=== PATIENT | female | born 1995 | race American Indian/Alaskan Native ===

== ENCOUNTER 2021-04-04 10:37 | Inpatient (IN) | payer MEDICAID ==
[2021-04-04] MEDS ORDERED: LACTATED RINGERS 1,000 ML ONE (11:29)
--- NOTE | 2021-04-04 11:31 | History and Physical Report ---
History of Present Illness Date of examination: 04/04/21 Date of admission: 04/04/2021 Chief complaint: "contractions" History of present illness: EDC Confirmation: 04/11/2021 Past History : 3 Term Births: 2 Premature Births: 0 Living Children: 2 Para: 2 Mult. Births: 0 Prev : 0 Prev. attempt? 0 Aborta: 0 Elect. Ab: 0 Spont. Ab: 0 Ectopics: 0 # 1 Delivery date: 2014 Weeks Gestation: term labor: no Delivery type: Hours of labor: 9 Anesthesia type: epidural [place] [facility] [place] Sex: Female weight: 7-4 Name: duke Comments: denies complications # 2 Delivery date: 2015 Weeks Gestation: term Delivery type: Hours of labor: 7 Anesthesia type: ? Delivery location: [facility] [place] Sex: Female weight: 7-6 Name: maxime Comments: Pt was very vague with details with this delivery Past Medical History: Negative Past Medical History Past Surgical History: Negative Past Surgical History Past Medical History Surgery (Non-recreation aide): Negative Past Surgical History Abnormal PAP: negative MURRAY Exposure: negative Infertility: negative Uterine Anomaly: negative Uterine Surgery (not C/S): negative Other Gynecologic Problems: negative Social Hx: Patient is single Smoking History: Patient is a former smoker. Infection History Hx of STD: chlamydia & GC HIV Risk Eval: no Hepatitis B Risk Eval: low risk Personal hx. of genital herpes: yes Partner hx. of genital herpes: no Rash, Viral, or Febrile illness since last LMP? no Varicella/Chicken Pox Status: Unknown TB Risk: no Genetic History Congenital Heart Defect: Mom: no Dad: no Livier Disease: Mom: no Dad: no Thalassemia Mom: no Dad: no Neural Tube Defect Mom: no Dad: no Down's Syndrome Mom: no Dad: no Clark-Sachs Mom: no Dad: no Sickle Cell Disease/Trait Mom: no Dad: yes Comments: his dad is SCT+; & a niece Hemophilia Mom: no Dad: no Muscular Dystrophy Mom: no Dad: no Cystic Fibrosis Mom: no Dad: no [place] Chorea Mom: no Dad: no Mental Retardation Mom: no Dad: no Fragile X Mom: no Dad: no Other Genetic/Chromosomal Disorder Mom: no Dad: no Child w/other defect Mom: yes Dad: no Comments: 1st daughter is SCT+ Other: FOB has a son but is unaware of his history Enviromental Exposures Xray Exposure: no Medication, drug, or alcohol use since LMP: no Chemical/Other Exposure: no Exposure to Cat Liter: no Hx of Parvovirus (Fifth Disease): no Occupational Exposure to Children: none Active Medications: None Current Allergies: No known allergies Past History Past Medical History: other (see HPI) Past Surgical History: other (see HPI) 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: other (see HPI) Family/Genetic History: other (see HPI) Social history: other (see HPI) - Obstetrical History Expected Date of Delivery: 04/11/21 Actual Gestation: 39 Week(s) 0 Day(s) : 3 Para: 2 Hx # Term Pregnancies: 2 Number of Pregnancies: 0 Spontaneous Abortions: 0 Induced : 0 Number of Living Children: 2 Medications and Allergies Allergies Allergy/AdvReac Type Severity Reaction Status Date / Time No Known Allergies Allergy Unverified 12/18/13 16:19 Home Medications Medication Instructions Recorded Confirmed Last Taken Type Nitrofurantoin [place]/M-Cryst 100 mg PO Q12HR #14 capsule 12/18/13 Unknown Rx [Macrobid] Acetaminophen/Codeine [Tylenol #3] 1 tab PO Q6H PRN #16 tab 04/10/15 Unknown Rx Nitrofurantoin [place]/M-Cryst 100 mg PO Q12HR #14 capsule 03/22/16 Unknown Rx [Macrobid CAP] Vit No.130/Iron/Folic 1 each PO QDAY #30 tablet 03/22/16 Unknown Rx [ Tablet] Review of Systems All systems: negative Genitourinary: contractions, no vaginal bleeding, no leakage of fluid - Vital Signs Vital signs: Vital Signs Pulse Ox 95 04/04/21 11:03 Temp Pulse Resp BP Pulse Ox 72 134/89 99 04/04/21 11:23 04/04/21 11:06 04/04/21 11:23 - Physical Exam Breasts: Positive: deferred Cardiovascular: Regular rate Lungs: Positive: Normal air movement Abdomen: Positive: normal appearance, soft, other (gravid) Uterus: Positive: normal size, normal contour, other (gravid) Extremities: Positive: normal - Obstetrical FHR: auscultation normal, category 1 Uterine Contraction Monitor Mode: External Cervical Dilatation: 5 (per Felicitas classroom technology coach) Uterine Contraction Pattern: Regular Uterine Tone Measurement Phase: Contraction Uterine Contraction Intensity: Moderate Results Result Diagrams: 04/04/21 12:00 All other labs normal. GBS UNKNOWN Tests: (1) Profile I ([id number]) Order Note: Clinical Information: SRC:UR HBsAg Screen Negative Negative *1 RPR Non Reactive Non Reactive *2 Rubella Antibodies, IgG 4.62 index Immune >0.99 *3 Non-immune <0.90 Equivocal 0.90 - 0.99 Immune >0.99 ABO Grouping B *4 Rh Factor Positive *5 Please note: Prior records for this patient's ABO / Rh type are not available for additional verification. Antibody Screen Negative Negative *6 WBC [H] 11.1 x10E3/uL 3.4-10.8 *7 RBC 3.92 x10E6/uL 3.77-5.28 *8 Hemoglobin 12.7 g/dL 11.1-15.9 *9 Hematocrit 36.5 % 34.0-46.6 *10 MCV 93 fL 79-97 *11 MCH 32.4 pg 26.6-33.0 *12 MCHC 34.8 g/dL 31.5-35.7 *13 RDW 12.5 % 11.7-15.4 *14 Platelets 262 x10E3/uL 150-450 *15 Neutrophils 73 % Not Estab. *16 Lymphs 20 % Not Estab. *17 Monocytes 5 % Not Estab. *18 Eos 1 % Not Estab. *19 Basos 0 % Not Estab. *20 ! Immature Cells <No Reported Value> *21 Neutrophils (Absolute) [H] 8.1 x10E3/uL 1.4-7.0 *22 Lymphs (Absolute) 2.2 x10E3/uL 0.7-3.1 *23 Monocytes(Absolute) 0.6 x10E3/uL 0.1-0.9 *24 Eos (Absolute) 0.1 x10E3/uL 0.0-0.4 *25 Baso (Absolute) 0.0 x10E3/uL 0.0-0.2 *26 ! Immature Granulocytes 1 % Not Estab. *27 ! Immature Grans (Abs) 0.1 x10E3/uL 0.0-0.1 *28 ! NRBC <No Reported Value> *29 Hematology Comments: <No Reported Value> *30 Tests: (2) HB Solu + Rflx [facility] ([id number]) Hemoglobin (Hgb) Solubility N Negative *31 Tests: (3) HIV Ag/Ab with Reflex ([id number]) HIV Screen 4th Generation wRfx Non Reactive Non Reactive *32 Tests: (4) HCV Ab w/Rflx to Verification ([id number]) ! HCV Ab 0.1 s/co ratio 0.0-0.9 *33 Tests: (5) Comment: ([id number]) ! Comment: SPRCS *34 Non reactive HCV antibody screen is consistent with no HCV infection, unless recent infection is suspected or other evidence exists to indicate HCV infection. Effective December 31, 2020, this panel will be made non-orderable as it no longer meets clinical guidelines for the detection of HCV infection. [facility] offers HCV Antibody with reflex to Quantitative real-time PCR ([id number]) and HCV Antibody with reflex to Qualitative JUDITH ([id number]) which align with current guidelines. Tests: (6) Urine Culture, Routine ([id number]) Urine Culture, Routine Final report *35 Tests: (7) Result ([id number]) ! Result 1 MUG *36 Mixed urogenital jordi 10,000-25,000 colony forming units per mL Assessment and Plan 26y.o. @ 39wks EGEric presents to triage with c/o painful contractions and desires for epidural. SVE performed per cooker mechanic 5cm, before CNM arrival to bedside. Pt denies LOF and VB; reports +FM. POC d/w pt and FOB. Questions encouraged. No questions verbalized at this time. Pt verbalizes understanding and agrees to POC. Admission orders placed in EMR. RN and Dr. Tineo made aware. Anticipate - Patient Problems (1) Insufficient care Current Visit: Yes Status: Acute Plan to address problem: continuous efm and toco notify provider with changes in status (2) 39 weeks gestation of Current Visit: Yes Status: Acute (3) GBS screening not performed Current Visit: Yes Status: Acute Plan to address problem: prophylaxis tx per protocol (4) Active labor at term Current Visit: Yes Status: Acute
[2021-04-04] MEDS ORDERED: CARBOPROST TROMETHAMINE 250 MCG/1 ML INJ IM PRN (11:34)
[2021-04-04] MEDS ORDERED: BUTORPHANOL 2 MG/1 ML INJ IV PRN (11:34)
[2021-04-04] MEDS ORDERED: miSOPROStol 200 MCG TAB PR PRN (11:34)
[2021-04-04] MEDS ORDERED: LIDOCAINE (2%) 20 MG/1 ML VIAL 20 ML MDV INFILTRATI ONE (11:34)
[2021-04-04] MEDS ORDERED: PROMETHAZINE 25 MG TAB PO PRN ×2 (11:34→17:06)
[2021-04-04] MEDS ORDERED: ePHEDrine SULFATE 50 MG/1 ML INJ IV PRN ×2 (11:34→13:00)
[2021-04-04] MEDS ORDERED: NALOXONE 0.4 MG/1 ML INJ IV PRN (11:34)
[2021-04-04] MEDS ORDERED: TERBUTALINE 1 MG/1 ML INJ SUB-Q PRN (11:34)
[2021-04-04] MEDS ORDERED: ONDANSETRON 4 MG/2 ML INJ IV PRN ×2 (11:34→17:06)
[2021-04-04] MEDS ORDERED: MINERAL OIL 30 ML ORAL LIQD PO PRN (11:34)
[2021-04-04] MEDS ORDERED: LOPERAMIDE 2 MG CAP PO PRN (11:34)
[2021-04-04] MEDS ORDERED: OXYTOCIN 10 UNIT/1 ML INJ IM PRN (11:34)
[2021-04-04] MEDS ORDERED: ACETAMINOPHEN 325 MG TAB PO PRN ×2 (11:34→17:06)
[2021-04-04] MEDS ORDERED: METHYLERGONOVINE MALEATE 0.2 MG/ML VIAL IM PRN (11:34)
[2021-04-04] MEDS ORDERED: LACTATED RINGERS 1,000 ML IV SCH (11:45)
[2021-04-04] MEDS ORDERED: OXYTOCIN DRIP 30 UNITS/500 ML BAG IV SCH ×2 (12:00)
[2021-04-04] MEDS ORDERED: AMPICILLIN/NS 2 GM/100 ML 2 GM/100 ML BAG IV ONE (12:00)
[2021-04-04 12:32] LABS: Hematocrit 35.7 % (30.3-42.9); Hemoglobin 12.8 gm/dl (10.1-14.3); Mean Corpuscular HGB Conc 36 % (30-34); Mean Corpuscular Volume 91 fl (79-97); Platelet Count 192 K/mm3 (140-440); Red Blood Count 3.91 M/mm3 (3.65-5.03); Red Cell Distribution Width 13.5 % (13.2-15.2)
[2021-04-04] MEDS ORDERED: NALOXONE 2 MG/2 ML INJ IV PRN (13:00)
--- NOTE | 2021-04-04 13:00 | Anesthesia Consultation ---
Anesthesia Consult and Med Hx Date of service: 04/04/21 - Airway Anesthetic Teeth Evaluation: Good ROM Head & Neck: Adequate Mental/Hyoid Distance: Adequate Mallampati Class: Class II Intubation Access Assessment: Probably Good - Pulmonary Exam CTA: Yes - Cardiac Exam Cardiac Exam: RRR - Pre-Operative Health Status ASA Pre-Surgery Classification: ASA2 Proposed Anesthetic Plan: Epidural - Pulmonary Hx Asthma: No COPD: No Hx Pneumonia: No - Cardiovascular System Hx Hypertension: No - Central Nervous System Hx Seizures: No Hx Psychiatric Problems: No - Endocrine Hx Renal Disease: No Hx End Stage Renal Disease: No Hx Hypothyroidism: No Hx Hyperthyroidism: No - Hematic Hx Anemia: No Hx Sickle Cell Disease: No - Other Systems Hx Alcohol Use: No
[2021-04-04] MEDS ORDERED: fentaNYL-BUPIV 2 MCG/ML-0.125% 200 MCG/100 ML BAG EPIDURAL SCH (14:00)
--- NOTE | 2021-04-04 15:11 | Progress Note ---
Labor Epidural - Labor Epidural Start Time: 13:04 Stop Time: 13:09 Performed by:: FRANCIS DUORN Procedure: Patient is requesting epidural for labor pain. H&P, and labs reviewed. Procedure explained, questions answered, consent obtained. Patient in sitting position with blood pressure cuff and pulse ox on and working. Timeout performed immediately before start of procedure. Sterile chlorahexadine 0.5% prep/drape. 3 mL 1% lidocaine skin wheal at L[3]-L[4]. 17-gauge tuohy epidural needle advanced to [id number]-[id number] with saline at [7] cm. 25-gauge spinal needle advanced until clear, free-flowing CSF. Intrathecal dexmedetomidine [5] mcg administered and needle removed. Epidural catheter advanced to [12] cm, negative aspiration for blood and csf, negative test dose 3 ml 1.5% lidocaine with epinephrine. Sterile sponge and tegaderm applied, followed by tape reinforcement. Patient tolerated procedure well.
--- NOTE | 2021-04-04 15:45 | Event Note ---
Date: 04/04/21 Pt comfortable s/p epidural. SVE 8-9/100%/-1 BBOW. Pt tolerated well. POC reviewed with pt, FOC, and RN at bedside. Questions encouraged and addressed. Pt verbalizes understanding and agrees to POC. Anticipate . T's Cat 1. DR Tineo present on unit and aware.
[2021-04-04] MEDS ORDERED: AMPICILLIN 1 GM in SODIUM CHLORIDE 0.9% 50 ML IV SCH (16:00)
[2021-04-04] MEDS ORDERED: LANOLIN/ZINC/DIMETHICONE (LANSINOH) 7 GM TP PRN (17:06)
[2021-04-04] MEDS ORDERED: WITCH HAZEL/ GLYCERIN PAD TP PRN (17:06)
[2021-04-04] MEDS ORDERED: BENZOCAINE/MENTHOL 20/0.5% TOP SPRAY 56 GM TP PRN (17:06)
[2021-04-04] MEDS ORDERED: MAGNESIUM HYDROXIDE (MOM) ORAL LIQD UDC PO PRN (17:06)
[2021-04-04] MEDS ORDERED: diphenhydrAMINE 25 MG CAP PO PRN (17:06)
[2021-04-04] MEDS ORDERED: oxyCODONE /ACETAMINOPHEN 5-325MG TAB PO PRN (17:06)
--- NOTE | 2021-04-04 17:06 | Procedure Note ---
OB Delivery Note - Delivery Date of Delivery: 04/04/21 Flying Squad Worker: MARCELO MONDRAGON Estimated blood loss: 200cc - Vaginal Delivery presentation: vertex Delivery position: OA Intrapartum events: meconium Delivery induction: none Delivery monitor: external FHT, external uterine Route of delivery: Delivery placenta: spontaneous Delivery cord: nuchal cord (x2), 3 umbilical vessels Episiotomy: none Delivery laceration: none Anesthesia: epidural Delivery comments: counts correct x2 IGLESIA present for delivery fundus firm below U with scant lochia noted mother and baby left LDR stable - Infant A at 1 minute: 8 at 5 minutes: 9 Gender: Male ([id number])
[2021-04-04] MEDS ORDERED: IBUPROFEN 600 MG TAB PO SCH (18:00)
[2021-04-04] MEDS ORDERED: DOCUSATE SODIUM 100 MG CAP PO SCH (22:00)
[2021-04-05 05:34] LABS: Hematocrit 35.1 % (30.3-42.9); Hemoglobin 12.4 gm/dl (10.1-14.3)
[2021-04-05] MEDS ORDERED: TETANUS,DIPH,PERTUSS(ACELL) VACCINE 0.5 ML SYRINGE IM ONE (06:00)
--- NOTE | 2021-04-05 08:44 | Progress Note ---
Assessment and Plan patient resting, c/o involution pain not relieved by tylenol. b/p noted 165/103 this morning, pt denies HARTLEY, visual changes or epigastric pain. Will give dose of motrin for cramping and reevaluate b/p in 1 hour. pre-e labs ordered. H&H 12.4/35.1. - Patient Problems (1) Elevated blood pressure reading Current Visit: Yes Status: Acute Plan to address problem: pre-e labs ordered. pt asymptomatic, c/o normal involution pain. rn to recheck b/p in 1 hour and update provider. if b/p remains elevated, will transfer to L&D for magnesium sulfate infusion. (2) (normal spontaneous vaginal delivery) Current Visit: Yes Status: Acute Plan to address problem: Continue pathway Subjective - Subjective Date of service: 04/05/21 Principal diagnosis: day #1 s/p , elevated b/p Patient reports: appetite normal, voiding normally, pain poorly controlled (tylenol no relieving involution pain), ambulating normally, no dizzy ambulation [place]: doing well, nursing well Objective - Vital Signs Latest vital signs: Vital Signs Temp Pulse Resp BP Pulse Ox Pulse Ox 04/05/21 07:41 97.8 F 59 L 16 165/103 100 04/05/21 05:05 12 04/05/21 04:43 98.1 F 59 L 18 147/80 98 04/05/21 01:27 97.6 F 68 18 133/86 97 04/04/21 22:12 12 04/04/21 20:00 98.6 F 82 12 96 98 04/04/21 19:58 89 99 04/04/21 19:57 80 124/73 04/04/21 19:53 85 98 04/04/21 19:48 77 100 04/04/21 19:43 95 H 99 04/04/21 19:42 85 123/66 04/04/21 19:41 98.9 F 17 04/04/21 19:40 99 04/04/21 19:38 83 99 04/04/21 19:33 75 99 04/04/21 19:28 77 99 04/04/21 19:27 75 117/66 04/04/21 19:23 79 97 04/04/21 19:18 82 99 04/04/21 19:13 82 98 04/04/21 19:12 73 128/77 04/04/21 19:08 75 99 04/04/21 19:03 77 98 04/04/21 18:58 83 133/77 98 04/04/21 18:52 87 98 04/04/21 18:47 78 99 04/04/21 18:44 98 H 92 04/04/21 18:42 103 H 100 04/04/21 18:37 93 H 100 04/04/21 18:32 81 100 04/04/21 18:28 75 83 L 04/04/21 18:27 73 121/71 99 04/04/21 18:22 81 98 04/04/21 18:17 71 99 04/04/21 18:12 67 125/70 99 04/04/21 18:07 72 99 04/04/21 18:02 75 99 04/04/21 17:58 71 124/63 04/04/21 17:57 73 97 04/04/21 17:52 77 98 04/04/21 17:47 72 98 04/04/21 17:43 70 129/65 04/04/21 17:42 75 100 04/04/21 17:37 85 100 04/04/21 17:32 72 100 04/04/21 17:27 86 98 04/04/21 17:22 88 99 04/04/21 17:17 90 99 04/04/21 17:12 78 100 04/04/21 17:11 77 124/72 04/04/21 17:08 76 94 04/04/21 17:07 89 95 04/04/21 17:01 76 100 04/04/21 16:56 67 99 04/04/21 16:51 96 H 100 04/04/21 16:46 75 99 04/04/21 16:42 83 147/74 04/04/21 16:41 104 H 100 04/04/21 16:36 76 100 04/04/21 16:31 68 100 04/04/21 16:26 65 100 04/04/21 16:21 62 100 04/04/21 16:16 72 100 04/04/21 16:12 60 122/66 04/04/21 16:11 59 L 100 04/04/21 16:06 64 100 04/04/21 16:01 59 L 100 04/04/21 16:00 98.0 F 18 04/04/21 15:56 60 100 04/04/21 15:51 69 100 04/04/21 15:46 65 100 04/04/21 15:41 60 120/69 100 04/04/21 15:36 71 99 04/04/21 15:31 66 96 04/04/21 15:26 64 97 04/04/21 15:21 74 97 04/04/21 15:16 73 96 04/04/21 15:12 62 113/65 04/04/21 15:11 62 98 04/04/21 15:06 66 98 04/04/21 15:01 68 98 04/04/21 14:56 72 98 04/04/21 14:51 72 98 04/04/21 14:46 66 98 04/04/21 14:42 65 123/72 04/04/21 14:41 67 99 04/04/21 14:36 66 99 04/04/21 14:31 71 99 04/04/21 14:26 59 L 98 04/04/21 14:21 70 99 04/04/21 14:16 70 99 04/04/21 14:11 68 99 04/04/21 14:10 67 123/71 04/04/21 14:08 69 127/76 04/04/21 14:06 64 116/66 100 04/04/21 14:04 72 118/70 04/04/21 14:02 63 114/67 04/04/21 14:01 64 98 04/04/21 14:00 67 114/68 04/04/21 13:58 69 109/62 04/04/21 13:56 71 113/65 97 04/04/21 13:54 69 118/69 04/04/21 13:52 67 115/66 04/04/21 13:51 62 99 04/04/21 13:50 77 119/68 04/04/21 13:48 65 123/71 04/04/21 13:46 64 126/73 99 04/04/21 13:44 70 124/64 04/04/21 13:42 68 124/72 04/04/21 13:41 85 99 04/04/21 13:40 68 122/68 04/04/21 13:38 68 128/79 04/04/21 13:36 70 127/74 99 04/04/21 13:34 74 126/71 04/04/21 13:32 77 127/74 04/04/21 13:31 62 99 04/04/21 13:30 69 122/74 04/04/21 13:28 73 124/81 04/04/21 13:26 70 119/72 99 04/04/21 13:24 65 127/83 04/04/21 13:22 74 127/72 04/04/21 13:21 77 98 04/04/21 13:20 68 128/68 04/04/21 13:19 78 143/88 04/04/21 13:16 68 131/75 99 04/04/21 13:14 71 137/73 04/04/21 13:12 82 141/82 04/04/21 13:11 77 99 04/04/21 13:10 74 150/86 04/04/21 13:08 81 145/85 04/04/21 13:07 81 141/79 04/04/21 13:06 73 99 04/04/21 13:03 68 157/81 04/04/21 13:01 82 99 04/04/21 12:56 91 H 98 04/04/21 12:53 63 135/80 04/04/21 12:51 65 97 04/04/21 12:46 71 99 04/04/21 12:41 86 97 04/04/21 12:36 82 98 04/04/21 12:32 98.4 F 74 18 143/83 04/04/21 12:31 71 97 04/04/21 12:26 84 98 04/04/21 12:23 20 04/04/21 12:21 87 99 04/04/21 12:16 73 99 04/04/21 12:11 74 99 04/04/21 12:06 79 99 04/04/21 12:01 73 99 04/04/21 11:56 80 98 04/04/21 11:51 84 98 04/04/21 11:46 79 100 04/04/21 11:41 76 99 04/04/21 11:39 98 04/04/21 11:36 72 98 04/04/21 11:23 72 99 04/04/21 11:18 82 98 04/04/21 11:13 76 99 04/04/21 11:08 74 99 04/04/21 11:06 74 134/89 04/04/21 11:04 67 94 04/04/21 11:03 95 Intake and Output 04/04/21 04/05/21 04/05/21 23:59 07:59 15:59 Intake Total 390 300 Output Total 2300 600 Balance -1910 -300 Intake: Oral 150 Intake, Free Water 240 300 Output: Urine 2100 600 Indwelling Catheter 1300 Void 800 600 Other 200 Other: Total, Intake Amount 150 Total, Output Amount 800 600 Estimated Blood Loss 200 - Exam Breasts: Present: normal, Cardiovascular: Present: Regular rate Lungs: Present: Clear to auscultation, Normal air movement Abdomen: Present: normal appearance, soft Vulva: both: normal Uterus: Present: normal, firm, fundal height below umbilicus Extremities: Present: normal Deep Tendon Reflex Grade: Normal +2 - Labs Labs: Abnormal lab results 04/04/21 Range/Units 12:00 WBC 12.1 H (4.5-11.0) K/mm3 MCH 33 H (28-32) pg MCHC 36 H (30-34) %
[2021-04-05] MEDS: IBUPROFEN 800 MG TAB PO PRN ×2 (09:01→17:12)
[2021-04-05] MEDS ORDERED: PRENATAL VIT27-FE FUMARATE-FOLIC ACID VIT TAB PO SCH (10:00)
--- NOTE | 2021-04-05 10:18 | Post Anesthesia Evaluation ---
- Post Anesthesia Evaluation Patient Participated: Yes Airway Patent: Yes Stable Respiratory Function: Yes Nausea/Vomiting: No Temp > 96.8F: Yes Pain Manageable: Yes Adequeate Hydration: Yes Anesthesia Complications: No Block Receding Appropriately: Yes
[2021-04-05 11:42] LABS: Alanine Aminotransferase 9 units/L (7-56); Uric Acid 2.5 mg/dL (3.5-7.6)
[2021-04-05 11:49] LABS: Hematocrit 34.6 % (30.3-42.9); Hemoglobin 12.5 gm/dl (10.1-14.3); Mean Corpuscular HGB Conc 36 % (30-34); Mean Corpuscular Volume 91 fl (79-97); Platelet Count 206 K/mm3 (140-440); Red Cell Distribution Width 13.4 % (13.2-15.2)
--- NOTE | 2021-04-05 14:52 | Event Note ---
Date: 04/05/21 Pre-e blood work NL; b/p 120/70-80's x2 after pain controlled with Motrin. Will continue to monitor patient closely.
[2021-04-05 20:53] LABS: Bilirubin,Urine NEG (Negative); Blood,Urine LG (Negative); Color,Urine Yellow (Yellow); Mucus,Urine FEW /HPF
[2021-04-05 20:55] LABS: RBC,Urine > 182.0 /HPF (0.0-6.0)
[2021-04-06] MEDS: IBUPROFEN 800 MG TAB PO PRN (01:36)
--- NOTE | 2021-04-06 08:40 | Discharge Summary ---
Providers - Providers Date of Admission: 04/04/21 10:38 Date of discharge: 04/06/21 (desires d/c home) Attending physician: GERMAIN SOLER MD 04/04/21 17:10 Consult to Blanket Binder [CONS] Routine Reason For Exam: assistance with , SNS Primary care physician: GERMAIN SOLER MD Hospitalization Reason for admission: Labor Condition: Good Pertinent studies: post delivery H&H 12.5/34.6, pre-e labs NL Procedures: Hospital course: uncomplicated and course Disposition: HOME / SELF CARE / HOMELESS Final Discharge Diagnosis (Prints w/discharge instructions): Time spent for discharge: 15 - Discharge Diagnoses (1) Elevated blood pressure reading Status: Acute (2) (normal spontaneous vaginal delivery) Status: Acute Core Measure Documentation - Palliative Care Palliative Care/ Comfort Measures: Not Applicable - Core Measures Any of the following diagnoses?: none Exam - Constitutional Vitals: Temp Pulse Resp BP Pulse Ox 98.0 F 53 L 18 130/79 98 04/06/21 07:40 04/06/21 07:40 04/06/21 07:40 04/06/21 07:40 04/06/21 08:00 General appearance: Present: no acute distress, well-nourished - EENT Eyes: Present: PERRL ENT: hearing intact, clear oral mucosa - Neck Neck: Present: supple, normal ROM - Respiratory Respiratory effort: normal Respiratory: bilateral: CTA - Cardiovascular Rhythm: regular Heart Sounds: Absent: rub, click - Extremities Extremities: No edema Peripheral Pulses: within normal limits - Abdominal General gastrointestinal: Present: soft, non-tender, non-distended, normal bowel sounds Female genitourinary: Present: normal - Integumentary Integumentary: Present: clear, warm, dry - Musculoskeletal Musculoskeletal: gait normal, strength equal bilaterally - Psychiatric Psychiatric: appropriate mood/affect, intact judgment & insight - Neurologic Neurologic: CNII-XII intact, moves all extremities - Additional findings Additional findings: lochia scant, fundus firm, VSSAF in last 24hrs Plan Activity: no restrictions Diet: regular Follow up with: GERMAIN SOLER MD [Primary Care Provider] - 7 Days (Congratulations! Please call [phone] to schedule your blood pressure check and your son's circumcision in 1 week. Bring EMLA cream to your son's appointment and wait for instructions. Call office for any headaches, visual changes or upper abdominal pain. ) Prescriptions: Lidocain2.5%/Prilocai2.5% [Emla] 5 gm TP ONCE PRN #1 tube PRN Reason: Pain Ibuprofen [Motrin 800 MG tab] 800 mg PO Q8HR PRN #30 tablet PRN Reason: Pain
[2021-04-06 12:35] VITALS: BP 131/89
== END 2021-04-06 12:50 | disposition home or self-care (01) | DRG 774 ==
LOC: TRG 10:37 → LD 10:38 → APU 10:40 → LD 11:35 → TRG 11:49 → OB 20:47
PROVIDERS: ADMIT Student in an Organized Health Care Education/Training Program; ATTEND Student in an Organized Health Care Education/Training Program
PROC: 10E0XZZ Delivery of Products of Conception, External Approach (ICD-10-PCS; principal; 2021-04-04)
PROC: 3E0R3BZ Introduction of Anesthetic Agent into Spinal Canal, Percutaneous Approach (ICD-10-PCS; 2021-04-04)
PROC: 00HU33Z Insertion of Infusion Device into Spinal Canal, Percutaneous Approach (ICD-10-PCS; 2021-04-04)
PROC: 3E0234Z Introduction of Serum, Toxoid and Vaccine into Muscle, Percutaneous Approach (ICD-10-PCS; 2021-04-05)
DX: O77.0 Labor and delivery complicated by meconium in amniotic fluid (principal); O90.89 Other complications of the puerperium, not elsewhere classified; O69.81X0 Labor and delivery complicated by cord around neck, without compression, not applicable or unspecified; R03.0 Elevated blood-pressure reading, without diagnosis of hypertension; Z37.0 Single live birth; Z20.822 Contact with and (suspected) exposure to COVID-19; Z3A.39 39 weeks gestation of pregnancy; Z23 Encounter for immunization
CPT/HCPCS: 36415; 81001; 82565; 83615; 84450; 84460; 84550; 85014; 85018; 85027; 86592; 86850; 86900; 86901; 87086; 99211; G0378; G0463; J0290; J0595; J7120; U0003